=== PATIENT | female | born 1945 | race Two or more races ===

== ENCOUNTER 2024-10-25 11:36 | Inpatient (IN) | payer OTHER ==
[~2024-10-25] VITALS: Ht 152.4 cm; Wt 75.3 kg
[~2024-10-25 11:36] MED LIST: CELECOXIB100 MG PO; COZAAR100 MG PO; COZAAR25 MG; DICY20TA PO; FORTAMET500 MG; FORTAMET500 MG PO; INTESTINEX680 M1 PO; LEVSIN/SL0.125 MG SL; METFORMIN HCL500 MG PO; ORPHENADRINE C100 MG PO; OZEMPIC0.25 MG/0. SQ; PEPCID AC20 MG PO; PROTONIX20 MG PO; RELAFEN500 MG; SYNTHROID200 MCG; SYNTHROID88 MCG PO; TENORMIN50 M1 PO
[2024-10-25] MEDS ORDERED: PAROXETINE HCL10 MG PO (11:49)
--- NOTE | 2024-10-25 11:51 | NUR ---
FEMINA VERBALIZA MALESTAR GENERAL Y TOS SIN SECRECIONES HACE APROX JONG SEMANA.
--- NOTE | 2024-10-25 15:06 | NUR ---
SE ORIENTA A PTE SOBRE TX MEDICO EL MISMO INDICA ENTENDER Y ACEPTAR, SE LEONORA MUESTRAS DE LAB LINAD ORDEN MEDICA BAJO MEDIDAS ASEPTICAS.
[2024-10-25 15:36] LABS: CALCIUM 8.8 mg/dL (8.5-10.1); CREATININE SERUM 0.78 mg/dL (0.55-1.02); GFR 71.61; POTASSIUM 5.15 mEq/L (3.5-5.1)
[2024-10-25 15:39] LABS: COVID-19 AG NEGATIVE (NEGATIVE)
[2024-10-25 15:46] LABS: BASO % 0.3 % (0.1-1.2); EOS # 0.07 (0.04-0.54); EOS % 0.5 % (0.7-7.0); HEMATOCRIT 33.2 % (34.1-44.9); LYMPH # 1.81 (1.18-3.74); LYMPH % 13.2 % (19.3-53.1); MEAN CORPUSCULAR HEMOGLOBIN 27.5 pg (25.6-32.2); MONO # 1.75 (0.24-0.82); NEUT # 9.95 (1.56-6.13); NEUT % 72.5 % (34.0-71.1); PLATELET COUNT 341 K/uL (163-369); RED CELL DISTRIBUTION WIDTH 15.2 % (11.6-14.4)
[2024-10-25 15:56] LABS: INFLUENZA A AG NEGATIVE (NEGATIVE)
[2024-10-25 16:37] LABS: MONO % 12.8 % (4.7-12.5)
[2024-10-25] MEDS ORDERED: levoFLOXacin IN DEXTROSE 5 % 5 MG/ML PIGGYBAG IV ONE (17:30)
[2024-10-25 17:33] LABS: URINE APPEARANCE Clear; URINE BILIRRUBIN Negative (NEGATIVE); URINE BLOOD Small; URINE COLOR Yellow; URINE GLUCOSE Negative (NEGATIVE); URINE KETONE Negative (NEGATIVE); URINE LEUKOCYTE Moderate; URINE NITRATE Negative; URINE PROTEIN 30 (NEGATIVE); URINE UROBILINOGEN 0.2 E.U./dl
[2024-10-25 17:35] LABS: ABG PH 7.397 (7.35-7.45); ABG PO2 77.8 mmHg (80-100); ABG pCO2 37.9 mmHg (35-45); BASE EXCESS -1.7 mmol/l; BICARBONATE 22.8 mmol/l (23-25); SaO2 95.2 %
[2024-10-25 17:36] LABS: URINE BACTERIA 4812.5 uL (0.0-1933); URINE RBC 24.1 uL (0.0-20.8); URINE WBC 206.9 uL (0.0-23.2)
[2024-10-25 17:45] LABS: allen test SATISFACTORY; mode ROOM AIR; o2 21 %; puncture site RADIAL RIGHT
--- NOTE | 2024-10-25 18:00 | NUR ---
SE ORIENTA PTE, LA MISMA REFIERE ENTENDER. SE CANALIZA Y SE ADMINISTRA MED LINDA ORDEN MEDICA. SE UBICA PTE EN LUCIANO 13
[2024-10-25 18:56] LABS: URINE CAST 0.44 uL (0.0-1.40)
[2024-10-25] MEDS ORDERED: CEFTRIAXONE SODIUM 2,000 MG in 0.9 % SODIUM CHLORIDE 100 ML IV SCH (19:55)
[2024-10-25] MEDS ORDERED: AZITHROMYCIN 500 MG VIAL IV SCH (19:55)
[2024-10-25] MEDS ORDERED: ENOXAPARIN SODIUM 40 MG/0.4 ML SYRINGE SUBCUTANEO SCH (19:55)
[2024-10-25] MEDS ORDERED: FAMOTIDINE/PF 20 MG in 0.9 % SODIUM CHLORIDE 8 ML IV PUSH SCH (19:57)
[2024-10-25] MEDS ORDERED: INSULIN LISPRO 1,000 UNIT/10 ML UNITS SUBCUTANEO PRN (20:00)
[2024-10-25] MEDS ORDERED: DEXTROSE 50 % IN WATER 0.5 G/ML DISP.SYRIN IV PRN (20:00)
[2024-10-25] MEDS ORDERED: ACETAMINOPHEN 325 MG TABLET PO PRN (20:00)
[2024-10-25] MEDS ORDERED: LOSARTAN POTASSIUM 100 MG TABLET PO SCH (20:31)
[2024-10-25] MEDS ORDERED: PAROXETINE HCL 10 MG TABLET PO SCH (20:31)
[2024-10-25 20:32] VITALS: BP 124/72
[2024-10-25] MEDS ORDERED: AZITHROMYCIN 500 MG VIAL IV ONE (21:07)
[2024-10-25] MEDS ORDERED: CEFTRIAXONE SODIUM 2,000 MG VIAL ONE (21:07)
[2024-10-25] MEDS ORDERED: ENOXAPARIN SODIUM 40 MG/0.4 ML SYRINGE SUBCUTANEO ONE (21:07)
[2024-10-25] MEDS ORDERED: FAMOTIDINE/PF 20 MG/2 ML VIAL ONE (21:08)
[2024-10-25 23:44] VITALS: BP 144/78; O2SAT 95
[2024-10-26] MEDS ORDERED: LEVOTHYROXINE SODIUM 50 MCG TABLET PO SCH (06:00)
[2024-10-26] MEDS ORDERED: CEFTRIAXONE SODIUM 2,000 MG VIAL ONE (07:58)
[2024-10-26] MEDS ORDERED: ENOXAPARIN SODIUM 40 MG/0.4 ML SYRINGE SUBCUTANEO ONE (07:58)
[2024-10-26] MEDS ORDERED: FAMOTIDINE/PF 20 MG/2 ML VIAL ONE (07:59)
[2024-10-26] MEDS ORDERED: AZITHROMYCIN 500 MG VIAL IV ONE (07:59)
[2024-10-26] MEDS ORDERED: ACETAMINOPHEN 500 MG GEL..CAP PO ONE (08:11)
[2024-10-26] MEDS ORDERED: DEXTROSE 50 % IN WATER 0.5 G/ML VIAL IV PRN (11:45)
[2024-10-26 15:37] VITALS: O2SAT 97
[2024-10-26 17:12] VITALS: BP 150/74
[2024-10-26 20:11] VITALS: O2SAT 97
[2024-10-27] VITALS (8 sets, daily range): BP systolic 139–171; BP diastolic 66–82; O2SAT 90–98
[2024-10-27] MEDS ORDERED: AZITHROMYCIN 500 MG VIAL IV ONE (08:16)
[2024-10-27] MEDS ORDERED: FAMOtidine 20 MG TABLET PO SCH (21:00)
[2024-10-28 01:37] VITALS: BP 151/82; O2SAT 93
[2024-10-28 01:42] VITALS: O2SAT 90
[2024-10-28 04:51] VITALS: O2SAT 90
[2024-10-28] MEDS ORDERED: AZITHROMYCIN 500 MG VIAL IV ONE (07:36)
[2024-10-28 09:32] VITALS: O2SAT 88
[2024-10-28 09:54] VITALS: BP 149/68; O2SAT 99
== END 2024-10-28 12:29 | disposition home or self-care (01) | DRG 193 ==
LOC: ER 11:50 → MEDI 20:07 → SEC-K 20:07 → MEDJ 10-26 00:20 → SEC-K 10-26 00:53 → MEDI 10-26 12:22
PROVIDERS: Emergency Medicine; General Practice; ADMIT Student in an Organized Health Care Education/Training Program; ATTEND Student in an Organized Health Care Education/Training Program
DX: J18.9 Pneumonia, unspecified organism (principal); A41.9 Sepsis, unspecified organism; N39.0 Urinary tract infection, site not specified; I10 Essential (primary) hypertension; E03.9 Hypothyroidism, unspecified

== ENCOUNTER → 2025-03-13 | Emergency (ER) | payer OTHER ==
[~2025-03-13] VITALS: Ht 152.4 cm; Wt 72.6 kg
[~2025-03-13] MED LIST changes: +ACETAMINOPHEN 500 MG GEL..CAP PO ONE; +NEURONTIN300 MG PO; +NORFLEX100MG PO; +ORPHENADRINE CITRATE 30 MG/ML AMPUL IM ONE; +ORPHENADRINE CITRATE 30 MG/ML AMPUL ONE; +PAROXETINE HCL10 MG PO
== END | disposition home or self-care (01) ==
LOC: ER 18:15
DX: S09.8XXA Other specified injuries of head, initial encounter (principal); W01.0XXA Fall on same level from slipping, tripping and stumbling without subsequent striking against object, initial encounter; Y93.89 Activity, other specified; Y92.89 Other specified places as the place of occurrence of the external cause; S39.82XA Other specified injuries of lower back, initial encounter; I10 Essential (primary) hypertension; E11.9 Type 2 diabetes mellitus without complications; Z79.84 Long term (current) use of oral hypoglycemic drugs